=== PATIENT | female | born 1975 | race Caucasian/White ===

== ENCOUNTER 2024-05-25 06:21 | Day surgery (SDC) | payer OTHER, SELFPAY ==
[2024-05-15 13:44] VITALS: BMI 26.6
--- NOTE | 2024-05-15 16:51 | PTCARENOTE ---
Abn ECG, Dr. Benson notified, no additional interventions requested.
[2024-05-25] VITALS (16 sets, daily range): BP systolic 86–127; BP diastolic 54–76; BMI 26.6
[2024-05-25] MEDS: TYLENOL 1000 MG PO (08:37)
--- NOTE | 2024-05-25 08:45 | W.SUR.PREOP ---
Pre-Operative Surgical Note
-
I have examined this patient prior to the performance of the scheduled procedure.
The patient's condition is unchanged from the time of the current History and
Physical and the patient is able to undergo the scheduled procedure.
--- NOTE | 2024-05-25 08:45 | HP.FOC2 ---
Focused History & Physical
Chief Complaint
HPI:
Chief Complaint: Incisional hernia
HPI / Indication for Planned Procedure: This is a 48-year-old female with a history of a supraumbilical hernia repair, unsure with mesh or primary
Relevant Past Medical History: Negative
Relevant Social History: Negative
Relevant Family History: Negative
Relevant Past Surgical History: Positive for (Umbilical hernia repair)
Review of Systems
Review of Pertinent Systems: All Systems Negative
Medication
See Medication form for detailed medications: Yes
Medication List (including Herbals & OTC):
ascorbic acid (vitamin C) 250 mg chewable tablet (Vitamin C) 500 mg PO DAILY 05/16/24
calcium 600 mg (as carbonate)-vit D3 20 mcg (800 unit) chewable tablet (Caltrate plus D) 1 tab PO DAILY 05/16/24
cetirizine 10 mg tablet (Zyrtec) 10 mg PO DAILY 05/16/24
cholecalciferol (vitamin D3) 50 mcg (2,000 unit) capsule (Vitamin D3) 50 mcg PO DAILY 05/16/24
fluoxetine 20 mg capsule 20 mg PO PRN PRN With menstrual cycle 05/16/24
fluoxetine 40 mg capsule 40 mg PO NOON 05/16/24
glucosamine-chondroitin 250 mg-200 mg tablet (Osteo Bi-Flex) 2 tab PO DAILY 05/16/24
ibuprofen 200 mg tablet 600 mg PO Q6H PRN Headache 05/16/24
multivitamin 1 tab PO DAILY 05/16/24
Medications Reviewed: Yes
Allergies and Reactions
Patient has Allergies: Yes
Noted Allergies and Reactions:
Allergy/AdvReac Type Severity Reaction Status Date / Time
No Known Allergies Allergy Verified 05/25/24 08:36
Pertinent Physical Exam
All Other Systems: Negative
Lungs: Normal
Diagnosis / Assessment
This is a 48-year-old female with a symptomatic recurrent umbilical/incisional hernia
Plan / Procedure
Will plan for a robotic incisional hernia repair with mesh.
Anesthesia/Sedation to be done by Anesthesia Provider: Yes
[2024-05-25] MEDS: NORMOSOL-R/PLASMALYTE-A 1000 IV ×3 (08:51→19:00)
[2024-05-25 08:54] LABS: HCG, Urine Qualitative Screen Negative
--- NOTE | 2024-05-25 11:39 | SUR.PHASEI ---
Rec'd sleepy on stretcher with HOB elevated low fowlers , oriented x 3 by RN, reassured, no c/o at present, ice at abd
--- NOTE | 2024-05-25 11:48 | SUR.PHASEI ---
Arouses with stimuli, c/o 'pain' falls back to sleep
[2024-05-25] MEDS: SUBLIMAZE 25 MCG IV ×2 (11:51→12:08)
--- NOTE | 2024-05-25 11:54 | W.IMMPOSTOP ---
Surgical Immed Post Op Note
-
Primary Surgeon: Reuben Blackwell MD
Assisting Surgeon: None
Pre-op Diagnosis: Incisional hernia
Post-op Diagnosis: Same
Procedure Performed: Robotic incisional hernia repair with mesh (IPUM+)
Anesthesia Type: General
Specimen / Cultures: None
Estimated Blood Loss: 17 cc
Complications: None
Operative Findings: Multiple midline defects but a dominant 1 x 2 cm wide epigastric hernia as well as a recurrent/incisional supraumbilical hernia (1 x 1 cm). No prior mesh identified. The peritoneum was very thin so we elected to do a IPUM+.
The falciform ligament and preperitoneal fat along the midline was taken down and the multiple small hernias were identified. The space was reinforced with an 11 cm round Bard [address]ight ST coated mesh. The majority of the mesh was covered using
the preperitoneal fat and the transversalis fascia that we were able to recruit on the contralateral side.
POST OP PLAN:
Will plan to discharge home pending pain control.
--- NOTE | 2024-05-25 11:59 | OR.RPT ---
Operative Report
Operative Report
Patient Name: Arcelia Costello
: 1975
Date of Operation: 05/25/2024
Preoperative Diagnosis: Incisional hernia
Postoperative Diagnosis: Same
Procedure(s):
Robotic incisional hernia repair with mesh (IPUM+ approach)
Surgeon(s):
Dr. Blackwell
Software Test Developer(s):
PEGGY Smith
Anesthesia: General
Estimated Blood Loss: 17 cc
Urine Output: None
Drains/Lines/Implants:
11 cm round Bard [address]ight [address] mesh
Specimens:
None
HPI/Surgical Indications:
This is a 48-year-old female who was seen in my office for a symptomatic umbilical bulge in the setting of a previous umbilical hernia repair though the patient is unclear whether she had it with mesh or not. She was diagnosed with an incisional
hernia. Risks/Benefits/Alternatives were discussed at length, and the patient agreed to proceed with surgery.
Operative Findings: Multiple midline defects but a dominant 1 x 2 cm wide epigastric hernia as well as a recurrent/incisional supraumbilical hernia (1 x 1 cm). No prior mesh identified. The peritoneum was very thin so we elected to do a IPUM+.
The falciform ligament and preperitoneal fat along the midline was taken down and the multiple small hernias were identified. The space was reinforced with an 11 cm round Bard Ventralight ST coated mesh. The majority of the mesh was covered using
the preperitoneal fat and the transversalis fascia that we were able to recruit on the contralateral side.
Procedure Description:
The patient was brought to the Operating Room and placed in the supine position with the arms tucked. IV antibiotics were infused and Venodyne stockings placed. Following uneventful induction of general endotracheal anesthesia, an orogastric tube
were placed. The abdomen was prepped and draped in the usual sterile fashion. The abdomen was entered using a Veress technique which required 1 pass, pneumoperitoneum to 15 mmHg was obtained without difficulty. An 8mm trochar was passed through
the abdominal wall roughly 20 cm laterally from the defect in the left upper quadrant, we then confirmed that no inadvertent injury was made while passing the trocar or Veress needle. We then placed two additional 8 mm ports in the left lower
quadrant. Bilateral tap blocks were performed. The robot was docked. We then introduced our prograsper through the inferior/left hand port and a monopolar scissors through the superior port. We then turned our attention to the hernia which had a
few omental adhesions that were quickly lysed. It was clear that superiorly part of the falciform ligament was bowed into the abdominal wall indicating an additional hernia. We began by trying to take down the peritoneum about 6 cm away from the
defect however it was very thin so we elected to do an IPUM+ and take down the falciform ligament. The superior hernia was identified and reduced. Much of the fat which was fairly significant given the small size of the hole was resected and
removed. We then turned our attention to the inferior defect which also contained preperitoneal fat this was simply reduced. We continued our dissection laterally and were able to stay on the preperitoneal plane and develop a flap, nevertheless it
was fairly thin with small rents made during our dissection most of which were closed with Vicryl suture. The superior defect measured roughly 1 x 2 cm there is additional defects along the midline as well as a umbilical defect which was 1 x 1 cm.
These were all closed with running 0 V-Loc 180 suture. Satisfied with our dissection, hemostasis was achieved. 1 g of TXA was administered as the patient was fairly oozy but this stopped shortly after administration. An 11 cm round Bard
Ventralight ST mesh was then introduced and tacked up to the abdominal wall using a Delvin Castaneda. This was then sutured to the posterior rectus sheath using 2-0 PDS suture. We then used a 2-0 barbed Monocryl suture to suture the proximal edge
of the flap up to the abdominal wall covering as much mesh as we could. In the end, only a small portion of the left lower quadrant of the mesh was exposed. All sutures were removed. The robot was undocked. The ports were removed under direct
visualization and pneumoperitoneum was evacuated. The port sites were closed with 4-0 Monocryl followed by Dermabond. Counts were correct and overall, the patient tolerated the procedure well and was taken to the Recovery Room postoperatively in
stable condition.
I was the attending physician and performed the procedure with assistance of the PA above. The assistance of PEGGY Smith was required due to the complexity of the procedure. During the procedure Martha assisted with port placement, instrument
and needle exchanges, and closure of the wound. I was present for all portions of the case, excluding skin closure.
Reuben Blackwell MD
--- NOTE | 2024-05-25 12:06 | SUR.PHASEI ---
Dozing vss, shaunna pain med well
--- NOTE | 2024-05-25 12:40 | SUR.PHASEI ---
re medicated shaunna well, reassured
--- NOTE | 2024-05-25 12:42 | SUR.PHASEI ---
Sleepy after 2nd pain med dose, vss, resp rate intact
--- NOTE | 2024-05-25 12:49 | SUR.PHASEI ---
More alert pain tolerable, vss SDS paged
[2024-05-25 15:32] LABS: Hematocrit 34.7 % (37.0-47.0); Hemoglobin 11.6 g/dL (12.0-16.0)
[2024-05-25] MEDS: TYLENOL 650 MG PO ×2 (16:51→21:11)
[2024-05-25] MEDS: TRANEXAMIC ACID 100 IV (17:09)
--- NOTE | 2024-05-25 17:29 | PTCARENOTE ---
Called report to [facility] CHRISTINE Garcia. Updated pt and her on transfer to . Pt reports pain/discomfort is tolerable. Given fresh ice pack and Hug Me pillow. Belongings with pt.
--- NOTE | 2024-05-25 18:49 | PTCARENOTE ---
pt admitted to room 2113 from [facility] at 1745. pt arrived via stretcher and assisted to stand at side of bed and transfer to bed w/assist of 1. pt and oriented to room, call coughlin, bed controls and plan of care. pt c/o headache. VS:
[id number], pox 97 on RA. IVF infusing. care ongoing.
[2024-05-26] MEDS: TYLENOL PO (00:55)
[2024-05-26 03:47] VITALS: BP 101/68
[2024-05-26] MEDS: TYLENOL 650 MG PO ×2 (03:52→09:50)
[2024-05-26 06:17] LABS: % Basophils 0.2 % (0-2); % Eosinophils 0.2 % (0-6); % Immature Granulocytes 0.3 % (0-0.5); % Lymphocytes 16.6 % (20.5-51.1); % Monocytes 7.8 % (1.7-9.3); % Neutrophils 74.9 % (42.2-75.2); Absolute Lymphocytes 1.6 10^3/uL (1.2-3.4); Absolute Monocytes 0.8 10^3/uL (0.1-0.6); Absolute Neutrophils 7.4 10^3/uL (1.4-6.5); Hematocrit 32.7 % (37.0-47.0); Hemoglobin 11.1 g/dL (12.0-16.0); Mean Corp Hgb Conc. 33.9 g/dL (33.0-37.0); Mean Corpuscular Hgb 31.7 pg (27.0-31.0); Mean Corpuscular Volume 93.4 fL (81.0-99.0); Mean Platelet Volume 9.6 fL (7.4-10.4); Nucleated Red Blood Cells % 0 %; Platelet Count 249 10^3/uL (130-400); Red Cell Dist. Width 13.1 % (11.5-14.5); White Blood Cell Count 9.8 10^3/uL (4.8-10.8)
[2024-05-26 06:48] LABS: Blood Urea Nitrogen 11 mg/dl (7-17); Calcium 8.9 mg/dl (8.4-10.2); Carbon Dioxide 24 mmol/L (22-30); Chloride 104 mmol/L (98-107); Estimated Creatinine Clearance 93 ml/min; Glucose 102 mg/dl (70-99); Potassium 4.2 mmol/L (3.5-5.1); Sodium 137 mmol/L (135-145); eGFR > 60.00
[2024-05-26 07:13] VITALS: BP 104/65
--- NOTE | 2024-05-26 10:47 | CM ---
Reviewed the chart notes and spoke with the patient and her spouse at the bedside. The patient resides with her spouse and children in a split level home with three steps to enter. The patient reports no DME/VN/SNF in the past. The patient
confirmed her pharmacy of choice is the [facility] and PCP is [facility]. CM continues to be available to patient/family and is monitoring medical plan for needs at discharge.
Plan: Discharge to home when medically stable. No needs identified at this time. Patient's spouse to provide transportation home.
--- NOTE | 2024-05-26 10:55 | W.PN.GS2 ---
Today's Communication / Plan
-
Dispo planning
Assessment / Plan
-
48 yo female who is POD #1 robotic incisional hernia repair with mesh (IPUM+). Some oozing to the umbilicus port site noted post operatively now s/p TXA administration.
H/H stable from previous
AFVSS
Tolerating diet, recovering well
--Discharge to home
--Continue regular diet
--Analgesics prn
Subjective Data
-
Date of Service: May 26, 2024
Patient seen and examined at bedside with Dr. Rodriguez. Some incisional soreness but pain well managed. OOB/Ambulating. Tolerating diet and passing flatus.
Objective Data
-
Intake and Output
05/25/24 05/26/24 05/27/24
06:59 06:59 06:59
Intake Total 1660 / 1660
Balance 1660 / 1660
Intake:
Oral fluids 960 / 960
IV fluids (Total) 700 / 700
normosol 100 / 100
Other:
Number of approximated MODERATE 1
amounts of urine
Number of approximated LARGE 4
amounts of urine
Vital Signs
Temp Pulse Resp BP Pulse Ox
98.6 F 74 18 104/65 99
05/26/24 07:13 05/26/24 07:13 05/26/24 07:13 05/26/24 07:13 05/26/24 07:13
Lab Results
05/26/24 05:11
05/26/24 05:11
Calcium 8.9 mg/dl (8.4-10.2) 05/26/24 05:11
Physical Exam
-
NAD
ABD soft, nd, mild tenderness to incisions
Glue dressings intact. Removed pressure dressing from umbilicus site; no active bleeding and very minimal ecchymosis present
Patient has a vernon catheter: No
Patient has a central line: No
--- NOTE | 2024-05-26 10:58 | W.DS.TRANS ---
DC Summary - Tow Operator
-
Discharge Instructions:
Sleep Apnea Risk Low
Discharge Diagnosis/Procedures Recurrent umbilical hernia. Robotic incisional
hernia repair with mesh.
Diet No restrictions
Activity No strenuous activity
Driving Restrictions As prior to admission
Bathing Restrictions OK to Shower
Instructions:
Stand-Alone Forms:
Changes to Home Medications: No
Discharge Medications:
DC Medications w/original date entered in [employer]
ascorbic acid (vitamin C) 250 mg chewable tablet (Vitamin C) 500 mg PO DAILY 05/16/24
calcium 600 mg (as carbonate)-vit D3 20 mcg (800 unit) chewable tablet (Caltrate plus D) 1 tab PO DAILY 05/16/24
cetirizine 10 mg tablet (Zyrtec) 10 mg PO DAILY 05/16/24
cholecalciferol (vitamin D3) 50 mcg (2,000 unit) capsule (Vitamin D3) 50 mcg PO DAILY 05/16/24
fluoxetine 20 mg capsule 20 mg PO PRN PRN With menstrual cycle 05/16/24
fluoxetine 40 mg capsule 40 mg PO NOON 05/16/24
glucosamine-chondroitin 250 mg-200 mg tablet (Osteo Bi-Flex) 2 tab PO DAILY 05/16/24
ibuprofen 200 mg tablet 600 mg PO Q6H PRN Headache 05/16/24
multivitamin 1 tab PO DAILY 05/16/24
acetaminophen 325 mg tablet 650 mg (2 x 325 mg) PO Q6HPRN PRN mild pain #14 tabs 05/25/24
ibuprofen 600 mg tablet 600 mg PO Q6H PRN pain #14 tabs 05/25/24
oxycodone 5 mg tablet 5 mg PO Q6HPRN PRN breakthrough/severe pain #10 tabs 05/25/24
Home Medication Changes
Pending Results: No
[2024-05-26] MEDS: PROZAC 40 MG PO (11:16)
[2024-05-26 11:20] VITALS: BP 108/67
== END 2024-05-26 11:38 | disposition home or self-care (01) ==
LOC: SDS 06:21
PROVIDERS: ATTENDING PHYSICIAN Surgery; FAMILY PHYSICIAN Family Medicine
DX: K43.2 Incisional hernia without obstruction or gangrene (principal)
CPT/HCPCS: 49613; 36415; 80048; 81025; 85014; 85018; 85025; 93005; C1781